=== PATIENT | male | born 1965 | race Caucasian/White ===

== ENCOUNTER → 2020-11-09 | Outpatient (CLI) | payer OTHER | LOC: M RAD 11:12 | PROVIDERS: ATTEND Internal Medicine | DX: R31.9 Hematuria, unspecified (principal); Z53.9 Procedure and treatment not carried out, unspecified reason ==

== ENCOUNTER → 2020-11-16 | Outpatient (CLI) | payer OTHER ==
--- NOTE | 2020-11-16 18:54 | REP ---
INDICATION: HEMATURIA, UNSPECIFIED COMPARISON: CT lumbar spine 12/21/2015. TECHNIQUE: CT Scan of the abdomen and pelvis was performed without intravenous contrast. Sagittal and coronal reconstruction images performed. FINDINGS: Lung bases: There is minor scarring in the lung bases, with a tiny calcified granuloma in the right lower lobe. Liver: Grossly unremarkable. Gallbladder: Unremarkable. Spleen: Few tiny calcified granulomas are seen in the spleen. Adrenals: Normal. Pancreas: Grossly unremarkable.. Kidneys: No hydronephrosis or nephrolithiasis. Ureters demonstrate no dilatation or calculus. Small and large bowel: Grossly unremarkable. Free fluid: None. Abdominal aorta: No aneurysm. Adenopathy: None. Appendix: Not inflamed. Osseous structures: There are old compression deformities of the L1 and L2 vertebral bodies, with degenerative changes.. Pelvis: No mass. No bladder calculus seen. IMPRESSION: Chronic findings as discussed in detail above. <Electronically signed by Tapan Martinez > 11/16/20 [id number]
== END ==
LOC: M RAD 17:39
PROVIDERS: ATTEND Internal Medicine
DX: R31.9 Hematuria, unspecified (principal)

== ENCOUNTER 2023-04-11 07:08 | Day surgery (SDC) | payer OTHER ==
[~2023-04-11] VITALS: Ht 165.1 cm; Wt 75.0 kg
[~2023-04-11 07:08] MED LIST: NS 1,000 ML IV ONE
[2023-04-11] MEDS ORDERED: propofoL 200 MG/20 ML VIAL As Ordered ONE (08:19)
[2023-04-11 08:26] VITALS: TEMP 98.7
[2023-04-11 08:44] VITALS: BP 141/88; O2SAT 99
== END 2023-04-11 08:46 | disposition home or self-care (01) ==
LOC: M OPP 07:08
PROVIDERS: ATTEND Internal Medicine Gastroenterology
DX: Z86.010 Personal history of colon polyps (principal); K64.0 First degree hemorrhoids; K57.30 Diverticulosis of large intestine without perforation or abscess without bleeding; Z88.5 Allergy status to narcotic agent; M19.90 Unspecified osteoarthritis, unspecified site

== ENCOUNTER → 2024-08-27 | Outpatient (CLI) | payer BC | LOC: M RAD 14:56 | PROVIDERS: ATTEND Internal Medicine | DX: N50.819 Testicular pain, unspecified (principal) ==

== ENCOUNTER → 2024-12-15 | Outpatient (CLI) | payer BC | LOC: M RAD 08:00 | PROVIDERS: ATTEND Internal Medicine | DX: R41.3 Other amnesia (principal) ==